=== PATIENT | female | born 1995 | race Caucasian/White ===

== ENCOUNTER 2020-10-19 11:25 | Emergency (ER) | payer OTHER ==
[~2020-10-19] VITALS: Ht 154.9 cm; Wt 66.0 kg
[2020-10-19] MEDS ORDERED: MORPHINE SULFATE 4 MG/ML CPJ (NOT FOR IM USE) IV STA (11:50)
[2020-10-19] MEDS ORDERED: ONDANSETRON HCL 4MG/2ML INJ IV STA (11:50)
[2020-10-19] MEDS ORDERED: SODIUM CHLORIDE 0.9% 1,000 ML IV ONE (12:00)
[2020-10-19 12:45] LABS: CHLORIDE 108 mEq/L (98-107)
[2020-10-19 12:46] LABS: BASOPHILS % 0.9 % (0.0-2.0); EOSINOPHILS % 1.8 % (0.0-5.0); HEMATOCRIT. 40.7 % (36.0-48.0); HEMOGLOBIN. 13.7 g/dL (12.0-16.0); LYMPHOCYTES % 22.1 % (20.0-50.0); MEAN CORPUSCULAR VOLUME 85.9 fL (81.0-99.0); MEAN PLATELET VOLUME 7.7 fl (7.4-10.4); MONOCYTES % 6.6 % (2.0-8.0); NEUTROPHILS % 68.6 % (40.0-76.0); PLATELET 474 x1000/uL (130-400); RED BLOOD CELL COUNT 4.73 mill/uL (4.2-5.4); RED CELL DISTRIBUTION WIDTH 12.7 % (11.6-14.6)
[2020-10-19 12:49] LABS: PROTHROMBIN TIME 10.7 sec (9.6-11.0)
[2020-10-19 12:55] LABS: CREATINE KINASE 83 IU/L (26-192)
[2020-10-19 12:57] LABS: CREATINE KINASE MB FRACTION < 1.0 ng/mL (0.5-3.6)
[2020-10-19 13:03] LABS: HCG SCREEN NEGATIVE
[2020-10-19 14:50] VITALS: BP 126/81
[2020-10-19] MEDS ORDERED: IBUP-2029 MT (15:56)
[2020-10-19] MEDS ORDERED: METH-773 MT (15:56)
[2020-10-19] MEDS ORDERED: IOHEXOL-300 100 ML BOTTLE ONE (18:44)
== END 2020-10-19 16:35 | disposition home or self-care (01) ==
LOC: ER 11:25
DX: S20.219A Contusion of unspecified front wall of thorax, initial encounter (principal); S30.1XXA Contusion of abdominal wall, initial encounter; S80.12XA Contusion of left lower leg, initial encounter; S80.11XA Contusion of right lower leg, initial encounter; R51.9 Headache, unspecified; M54.2 Cervicalgia; V49.49XA Driver injured in collision with other motor vehicles in traffic accident, initial encounter; Y93.89 Activity, other specified; Y92.488 Other paved roadways as the place of occurrence of the external cause
CPT/HCPCS: 36415; 70450; 71045; 71260; 72125; 73590; 73610; 73630; 74177; 80053; 81025; 82550; 82553; 84484; 84703; 85025; 85610; 93005; 96361; 96374; 96375; 99285; J2270; J2405; J7030; Q9967; L0172